=== PATIENT | male | born 1960 | race Caucasian/White ===

== ENCOUNTER → 2022-06-28 | Outpatient (CLI) | payer OTHER ==
[2022-06-27 07:54] VITALS: BP 197/119
[~2022-06-28] VITALS: Ht 172 cm; Wt 75.0 kg
[~2022-06-28] MED LIST: ASPI-999 PO; ATOR40TA PO; CARV3.12 PO; CATHETER FLUSH 10 ML SYR IV PRN; CATHETER FLUSH 10 ML SYR IVP PRN; CEFD300C3 PO; CLOP-31 PO; DOXY100T2 PO; HOLD METFORMIN - RECEIVED CONTRAST 20 ML VIAL IV SCH; IOHEXOL 350 MG/ML 100 ML (OMNIPAQUE 350) VIAL IV ONE; LOSA25TA41 PO; NS 100 ML (IVPB) BAG IV ONE; REGADENOSON 0.4 MG/5 ML SYR (LEXISCAN) IV ONE
[2022-06-28 07:16] LABS: CREATININE SERUM 1.16 MG/DL (0.60-1.30)
--- NOTE | 2022-06-28 13:10 | Diagnostic Imaging Report ---
Indication: Essential hypertension. Post IV contrast-enhanced CT angiogram neck performed with 2-D and 3-D reconstructions I have no priors. There is conventional branching of the aortic arch. Calcified plaque at the left vertebral osteo results in less than 50% stenosis. The right cervical vertebral artery proximally is positioned anterior to the foramen transversarium as an incidental variant. No hemoglobin significant cervical or intracranial vertebral arterial stenosis. The basilar and [employer] segments included in the [id number] patent and unremarkable. There is bulky calcified and partially noncalcified plaque at the left carotid bulb and bifurcation extending into the proximal internal and external carotids resulting in around (70-80%) stenosis calcified and partially noncalcified plaque, at the right carotid bifurcation resulting in about 50% stenosis. Mid to distal cervical internal carotids have a tortuous course but are widely patent. Intracranial ICAs and visualized anterior and middle cerebral arterial segments unremarkable. IMPRESSION: Left greater than right carotid stenoses at the bifurcations and proximal ICAs owing to calcified greater than soft plaque. On the left the stenosis is probably around 70-80% and on the right around 50%. No hemodynamically significant vertebrobasilar stenosis and the visualized intracranial arterial structures unremarkable. Dictated by: Dictated on workstation # [id number]
--- NOTE | 2022-06-29 08:51 | Cardiology Stress Test Report ---
Stress Test Report Date of Procedure/Referring: Date of Procedure: Jun 28, 2022 PCP Admitting Physician Admitting Physician: Attending Physician: Tracee Dumas MD Indications: CAD Baseline Heart Rate: 113 Baseline Blood Pressure: Blood Pressure Systolic: 197 Blood Pressure Diastolic: 119 Baseline Vitals Vital Signs Date Time Temp Pulse Resp B/P (MAP) Pulse Ox O2 Delivery O2 Flow Rate FiO2 06/27/22 07:54 113 197/119 (145) 99 Baseline EKG: Baseline EKG: NSR Summary After explaining the procedure to the patient, he signed a consent and then brought to the stress nuclear laboratory. Patient received 0.4 mg Lexiscan for stress test, ECG, heart rate and blood pressure were monitored continuously. Resting and stress dose of radio tracer were injected, imaging was acquired and reviewed in short axis, horizontal long axis and vertical long axis views. TID: 1.22 SSS: 16 SDS: 4 EF: 23 1. Patient tolerated Lexiscan well 2. Baseline hypertension persisted during test 3. Total infarction of the inferior wall with sophy-infarct ischemia 4. Transient ischemic dilatation 1.2 to 5. Dilated left ventricle with diffuse left ventricular hypokinesia with ejection fraction 23% TRACEE DUMAS MD Jun 29, 2022 08:51
== END ==
LOC: CARD 06:41
PROVIDERS: ATTEND Internal Medicine Cardiovascular Disease
DX: I11.0 Hypertensive heart disease with heart failure (principal); I21.9 Acute myocardial infarction, unspecified; I25.9 Chronic ischemic heart disease, unspecified; I65.23 Occlusion and stenosis of bilateral carotid arteries; I35.1 Nonrheumatic aortic (valve) insufficiency
CPT/HCPCS: 70498; 78452; 82565; 84520; 93017; A9502; C8929; 36415; 93306

== ENCOUNTER 2022-06-29 11:00 | Day surgery (SDC) | payer OTHER ==
[2022-06-29] VITALS (12 sets, daily range): BP systolic 134–207; BP diastolic 75–131
[~2022-06-29] VITALS: Ht 172.7 cm; Wt 74.8 kg
--- NOTE | 2022-06-29 09:15 | Diagnostic Imaging Report ---
INDICATION: Pre-heart catheter evaluation COMPARISON: None FINDINGS: Single frontal view of the chest demonstrates normal heart size and pulmonary vascularity. The lungs are well aerated and clear. No large pleural effusion or pneumothorax is seen. The visualized osseous structures show no acute abnormalities. IMPRESSION: 1. No acute cardiopulmonary process. Dictated by: Dictated on workstation # [id number]
[2022-06-29 09:30] LABS: HEMATOCRIT 46 % (40-54); HEMOGLOBIN 15.9 g/dL (13.3-17.7); MEAN CORPUSCULAR HEMOGLOBIN 27 pg (25-34); MEAN CORPUSCULAR HGB CONC 34 g/dL (32-36); MEAN CORPUSCULAR VOLUME 78 fL (80-99); MEAN PLATELET VOLUME 9.6 fL (9.0-12.2); PLATELET COUNT 325 10^3/uL (130-400); WHITE BLOOD COUNT 10.5 10^3/uL (4.3-11.0)
[2022-06-29 09:31] LABS: BILIRUBIN,URINE NEGATIVE (NEGATIVE); CLARITY,URINE CLEAR; COLOR,URINE YELLOW; GLUCOSE, URINE (UA) 3+ (NEGATIVE); KETONES,URINE NEGATIVE (NEGATIVE); LEUKOCYTE ESTERASE ,URINE NEGATIVE (NEGATIVE); NITRITE,URINE NEGATIVE (NEGATIVE); PH,URINE 5.5 (5-9); PROTEIN,URINE 2+ (NEGATIVE)
[2022-06-29 09:38] LABS: BACTERIA,URINE FEW /HPF; RBC,URINE 0-2 /HPF; WBC,URINE RARE /HPF
[2022-06-29 09:42] LABS: INR 0.9 (0.8-1.4); PROTHROMBIN TIME PATIENT 12.6 SEC (12.2-14.7)
[2022-06-29 09:57] LABS: ALBUMIN 3.8 GM/DL (3.2-4.5); BILIRUBIN,TOTAL 0.6 MG/DL (0.1-1.0); CALCIUM 10.1 MG/DL (8.5-10.1); CREATININE SERUM 1.18 MG/DL (0.60-1.30); POTASSIUM 4.3 MMOL/L (3.6-5.0)
[~2022-06-29 11:00] MED LIST changes: -ATOR40TA PO; -CARV3.12 PO; -CATHETER FLUSH 10 ML SYR IV PRN; -CATHETER FLUSH 10 ML SYR IVP PRN; +HEParin (CATH LAB) 2,000 ML IV ONE; -HOLD METFORMIN - RECEIVED CONTRAST 20 ML VIAL IV SCH; -IOHEXOL 350 MG/ML 100 ML (OMNIPAQUE 350) VIAL IV ONE; +ISOSORBIDE MONONITRATE 30 MG (IMDUR) TAB PO ONE; +LIDOCAINE 1% INJ 20 ML VIAL ONE; -LOSA25TA41 PO; -NS 100 ML (IVPB) BAG IV ONE; +NS IV 1000 ML 1,000 ML IV SCH; +NS IV 1000 ML 1,000 ML ONE; -REGADENOSON 0.4 MG/5 ML SYR (LEXISCAN) IV ONE
--- NOTE | 2022-06-29 14:08 | Cardiac Procedure Note-CS/ASA ---
Pre-Procedure Note Pre-Op Procedure Note Date of Available H&P: Jun 21, 2022 Date H&P Reviewed: Jun 29, 2022 Time H&P Reviewed: 14:08 History & Physical: H&P Reviewed, Patient Examed, No changes noted Pre-Operative Diagnosis: PAD, CAD Conscious Sedation Pre-Proced Time 14:08 ASA Score 3 For ASA 3 and 4: Consider anesthesia and medical clearance. Also, for patients with a history of failed moderate sedation consider anesthesia. Airway Lungs Heart ASA score ASA 1: a normal healthy patient ASA 2: a patient with a mild systemic disease (mid diabetes, controlled hypertension, obesity ASA 3: a patient with a severe systemic disease that limits activity (angina, COPD, prior Myocardial infarction) ASA 4: a patient with an incapacitating disease that is a constant threat to life (CHF, renal failure) ASA 5: a moribund patient not expected to survive 24 hrs. (ruptured aneurysm) ASA 6: a declared brain- patient whose organs are being harvested. For emergent operations, add the letter E after the classification Mallampati Classification Grade 3 Sedation Plan Analgesia, Amnesia, Plan communicated to team members, Discussed options with patient/fam, Discussed risks with patient/fam The patient is an appropriate candidate to undergo the planned procedure, sedation, and anesthesia. The patient immediately re-assessed prior to indication. TRACEE OJEDA MD Jun 29, 2022 14:08
[2022-06-29] MEDS ORDERED: MIDAZOLAM 5 MG/5 ML (VERSED) VIAL ONE (14:16)
[2022-06-29] MEDS ORDERED: fentaNYL INJ 100 MCG/2 ML AMP ONE (14:16)
[2022-06-29] MEDS ORDERED: HEParin 1000 UNIT/ML (10ML VIAL) FOR BOLUS ONE (14:43)
[2022-06-29] MEDS ORDERED: meTOprolol 5 MG/5 ML (LOPRESSOR) VIAL ONE (14:51)
[2022-06-29] MEDS ORDERED: ATOR40TA PO (15:08)
--- NOTE | 2022-06-29 15:09 | Discharge Inst-Post CATH ---
Discharge Inst-CATH/EP Problems Reviewed?: Yes Post Cardiac Cath/EP D/C Inst Follow Up/Plan Appointment with Dr. Jong Montilla with [facility] in [place] Appointment with Dr. Dumas's office in 2 weeks <b>CARDIAC CATH/EP PROCEDURE DISCHARGE INSTRUCTIONS</b> ACTIVITY * Go Home directly and rest. * Limit activity of the leg (or wrist if it was used) for 7 days including aerobics, swimming, jogging, bicycling, etc. * Restrict stair-climbing for 7 days if possible, if not, climb up with your non-cath leg, then bring together on the same step. * Avoid lifting, pushing, pulling or excessive movement of the affected extremity for 7 days. * Customary sexual activity may be resumed after 2 days-use caution not to use a position that strains or causes pain to the affected extremity. * No driving for 24 hours. * NO SMOKING. * Avoid straining for bowel movements for 7 days. * Gentle walking on level ground is allowed. * Returning to work will depend on the type of procedure and the results. Your doctor will discuss this with you. CALL YOUR DOCTOR FOR ANY OF THE FOLLOWING: *If bleeding from the puncture site occurs- Apply gentle pressure to site with clean cloth and call your doctor or EMS. * If a knot or lump forms under the skin, increases in size, or causes pain. * If bruising appears to be worsening or moving further down your leg instead of disappearing. * Temperature above 101 F. CARE OF YOUR GROIN INCISION; * Bruising or purple discoloration of the skin near the puncture site is common. * You may shower only, no bathtub bathing for 5 days. Be careful to avoid slipping as your leg may feel stiff. * If a closure device was used on your femoral artery, please see the attached guide regarding care of the device and your leg. * Leave dressing on FOR 24 hours. CARE OF YOUR WRIST INCISION; * Bruising or purple discoloration of the skin near the puncture site is common. * You may shower. * DO NOT submerge wrist. * Leave dressing on FOR 24 hours. TRACEE DUMAS MD Jun 29, 2022 15:09
--- NOTE | 2022-06-29 15:14 | Cardiac Cath Report ---
Cardiac Cath Report Physician (s)/Configuration Manager (s) Physician TRACEE OJEDA MD Pre-Procedure Diagnosis Pre-Procedure Diagnosis: PAD, CAD Post-Procedure Note Procedure Start Date: Jun 29, 2022 Name of Procedure: Left heart catheterization Aortic arch angiogram Bilateral lower extremities runoff First order Additional imaging Findings/Procedure Note PROCEDURE NOTE: 61 years old gentleman admitted with claudication, had an abnormal BRENDON scheduled for peripheral angiogram with bilateral lower extremities runoff. He had abnormal stress test and I decided to proceed with coronary angiogram in addition to the peripheral angiogram. After explaining the procedure to the patient, all pros and cons were explained, all questions were answered. The patient signed the consent and then he was placed in the cardiac catheterization laboratory. Groin was prepped in SL fashion local anesthesia was used. Sheath placed in the left femoral artery. Mateus' right and left catheter were used to access the coronary system. Pigtail catheter was advanced to the aortic arch and aortic arch angiogram was done. Using a rim catheter I crossed over to the right common iliac artery and did runoff to the right lower extremity, I tried to advance a Storq wire without success. Catheter was removed then I did runoff to the left leg with using the sheath then did DSA imaging at the level of the trifurcation. At the end of the procedure the sheath was removed. Perclose was deployed on the left leg with no complication. FINDINGS: Hemodynamics LV 124/10, end-diastolic pressure of 10 Aorta 136/62 mean of 88 ANATOMY: Left Main is calcified. Nonobstructive disease Left Anterior Descending has 80% mid LAD stenosis, 80% first diagonal artery stenosis. Left Circumflex has severe stenosis distally. Ramus intermedius has severe stenosis proximally Right Coronary Artery dominant artery with total occlusion at the midportion reconstructed by collaterals LV Gram was not done. Ejection fraction known to be 25 to 30% by echo and 23% by gated images Aorta evaluation done with aortic arch angiogram showing heavy calcification. No dissection or aneurysm, normal origin of the brachiocephalic artery left carotid and left subclavian artery Right lower extremity runoff, heavily calcified arteries down to the trifurcation, Right common iliac and common femoral artery are patent with mild disease Right SFA, popliteal arteries are patent with mild to moderate disease nonobstructive disease Trifurcation is normal with no obstructive disease Left lower extremity: Calcified artery with 40% stenosis at the mid SFA. Nonobstructive disease down to the trifurcation Left anterior tibial artery, posterior tibial artery and peroneal arteries are normal with slow flow due to small vessel disease CONCLUSION: 1. Severe multivessel coronary artery disease with occlusion of the right coronary artery that is dominant artery receiving collaterals from the left system 2. Dilated left ventricle with ejection fraction 25% by echocardiogram 3. Heavily calcified aorta with no dissection or aneurysm 4. Calcified arteries in the lower extremity with no obstructive disease DISCUSSION AND RECOMMENDATION: Patient will be referred for evaluation for bypass surgery. Continue to maximize medical therapy Anesthesia Type: Conscious Sedation Estimated blood loss (mL): 20 ml Total Radiation Dose: 449 mGy Post-Procedure Diagnosis Post-operative diagnosis: Coronary artery disease Congestive heart failure, chronic compensated left ventricular systolic dysfunction, ischemic cardiomyopathy Hypertension Hyperlipidemia Peripheral arterial disease TRACEE OJEDA MD Jun 29, 2022 15:14
[2022-06-29] MEDS ORDERED: LOSA25TA41 PO (15:15)
[2022-06-29] MEDS ORDERED: CARV3.12 PO (15:15)
[2022-06-29] MEDS ORDERED: PATIENT MAY USE OWN MEDS, ALL PO SCH (15:15)
[2022-06-29] MEDS ORDERED: NS IV 1000 ML 1,000 ML IV SCH (15:15)
[2022-06-30] MEDS ORDERED: ASPIRIN E.C. 81 MG (ECOTRIN) TAB PO SCH (09:00)
== END 2022-06-29 18:38 | disposition home or self-care (01) ==
LOC: CATH 11:00 → CSD 15:29 → CATH 18:38
PROVIDERS: ATTEND Internal Medicine Cardiovascular Disease
DX: I25.10 Atherosclerotic heart disease of native coronary artery without angina pectoris (principal); I25.82 Chronic total occlusion of coronary artery; I70.203 Unspecified atherosclerosis of native arteries of extremities, bilateral legs; I11.0 Hypertensive heart disease with heart failure; I25.5 Ischemic cardiomyopathy; E78.5 Hyperlipidemia, unspecified; I65.23 Occlusion and stenosis of bilateral carotid arteries; I50.22 Chronic systolic (congestive) heart failure; Z87.891 Personal history of nicotine dependence
CPT/HCPCS: 36221; 36245; 36248; 71045; 75716; 80053; 80061; 81000; 85027; 85610; 85730; 87081; 93005; 93458; C1760; C1769; C1887 ×2; C1894; 36415

== ENCOUNTER → 2022-07-25 | Outpatient (CLI) | payer OTHER ==
[~2022-07-25] MED LIST changes: +ATOR40TA PO; +CARV3.12 PO; +DOBUTamine DRIP 250 ML IV ONE; -HEParin (CATH LAB) 2,000 ML IV ONE; -ISOSORBIDE MONONITRATE 30 MG (IMDUR) TAB PO ONE; -LIDOCAINE 1% INJ 20 ML VIAL ONE; +LOSA25TA41 PO; -NS IV 1000 ML 1,000 ML IV SCH; -NS IV 1000 ML 1,000 ML ONE
[2022-07-25 10:12] VITALS: BP 204/116
== END ==
LOC: CARD 11:00
PROVIDERS: ATTEND Physician Assistant
DX: I51.7 Cardiomegaly (principal)

== ENCOUNTER → 2022-07-25 | Outpatient (CLI) | payer OTHER ==
[~2022-07-25] MED LIST changes: -DOBUTamine DRIP 250 ML IV ONE
== END ==
LOC: LAB 09:44
DX: E11.52 Type 2 diabetes mellitus with diabetic peripheral angiopathy with gangrene (principal)
CPT/HCPCS: 36415; 83036

== ENCOUNTER 2022-08-30 16:49 | Emergency (ER) | payer OTHER ==
[~2022-08-30] VITALS: Ht 173 cm; Wt 73.9 kg
--- NOTE | 2022-08-30 17:09 | ED General ---
General Chief Complaint: Post OP Complications/Pain Stated Complaint: POST OP CATHETER BLEEDING Nursing Triage Note: ARRIVES TO ROOM WITH C/O POST HEART CATH BLEEDING FROM INSERTION AREA. NOTED BLEEDING FROM LEFT GROIN AREA. Source of Information: Patient Exam Limitations: No Limitations History of Present Illness Date Seen by Provider: Aug 30, 2022 Time Seen by Provider: 16:58 Initial Comments This is a well-appearing 61-year-old male who presented to the ER via POV for complaints of bleeding from his cardiac catheter site in his left groin. He had cardiac catheterization by Dr. White at [facility] this morning. Discharged home with no complications. After taking a nap he woke to find blood saturated on his dressing. Applied direct pressure but site continued to ooze. Has not saturated through dressing. Presented to ER for evaluation. Denies pain, numbness, tingling, or loss of sensation. Allergies and Home Medications Allergies Coded Allergies: No Known Drug Allergies (Unverified , 08/30/22) Patient Home Medication List Home Medication List Reviewed: Yes Aspirin (Aspirin) 81 Mg Tab.chew, 81 MG PO DAILY, (Reported) Entered as Reported by: TRISTA ASHLEY on 06/29/22 0936 Atorvastatin Calcium (Lipitor) 40 Mg Tablet, 40 MG PO DAILY Prescribed by: TRACEE OJEDA on 06/29/22 1508 Carvedilol (Coreg) 3.125 Mg Tablet, 3.125 MG PO BID Prescribed by: TRACEE OJEDA on 06/29/22 151 Cefdinir (Cefdinir) 300 Mg Capsule, 300 MG PO BID, (Reported) Entered as Reported by: TRISTA ASHLEY on 06/29/22 0936 Clopidogrel Bisulfate (Plavix) 75 Mg Tablet, 75 MG PO DAILY, (Reported) Entered as Reported by: TRISTA ASHLEY on 06/29/22 0934 Doxycycline Hyclate (Doxycycline Hyclate) 100 Mg Tablet, 100 MG PO BID, (Reported) Entered as Reported by: TRISTA ASHLEY on 06/29/22 0936 Losartan Potassium (Losartan Potassium) 25 Mg Tablet, 25 MG PO DAILY Prescribed by: TRACEE OJEDA on 06/29/22 1515 Review of Systems Review of Systems Constitutional: see HPI Past Mbfuxvp-Sjlwne-Bmmizc Hx Past Medical History Orthopedic Currently Using CPAP: No Currently Using BIPAP: No Hypertension Physical Exam Vital Signs Vital Signs - First Documented 08/30/22 16:56 Temp 36.6 Pulse 95 Resp 18 B/P (MAP) 200/108 (138) Pulse Ox 100 O2 Delivery Room Air Capillary Refill : Height, Weight, BMI Height: '" Weight: lbs. oz. kg; 24.00 BMI Method: General Appearance: No Apparent Distress, WD/WN Eyes: Bilateral Eye Normal Inspection, Bilateral Eye PERRL, Bilateral Eye EOMI HEENT: PERRL/EOMI, TMs Normal, Pharynx Normal Neck: Full Range of Motion, Normal Inspection, Supple Respiratory: Lungs Clear, Normal Breath Sounds, No Accessory Muscle Use, No Respiratory Distress Cardiovascular: Regular Rate, Rhythm, No Edema, Systolic Murmur Gastrointestinal: Normal Bowel Sounds, Non Tender, Soft Extremity: Normal Capillary Refill, Normal Inspection, Normal Range of Motion, Other (ozing blood from left groin incision, no pulsations or hematomas appreciated. ) Neurologic/Psychiatric: Alert, Oriented x3, No Motor/Sensory Deficits, Normal Mood/Affect Skin: Normal Color, Warm/Dry Progress/Results/Core Measures Suspected Sepsis SIRS Temperature: Pulse: 95 Respiratory Rate: 18 Blood Pressure 200 /108 Mean: 138 Results/Orders My Orders Orders - SHAMEKA MANJARREZ APRN Lidocaine/Epi 2% 1:100,000 (Xylocaine/Ep (08/30/22 17:15) Lidocaine/Epi 1% 1:100,000 (Xylocaine /E (08/30/22 17:27) Medications Given in ED Current Medications Medications Dose Ordered Sig/Gunnar Route Start Time Stop Time Status Last Admin Dose Admin Lidocaine/ Epinephrine 20 ml STK-MED ONCE .ROUTE 08/30/22 17:27 08/30/22 17:30 DC 08/30/22 17:31 20 ML Vital Signs/I&O 08/30/22 08/30/22 16:56 18:05 Temp 36.6 36.6 Pulse 95 98 Resp 18 18 B/P (MAP) 200/108 (138) 158/90 Pulse Ox 100 100 O2 Delivery Room Air Room Air Capillary Refill : Blood Pressure Mean: 138 Progress Note : Progress Note Patient examined no acute distress. He is hypertensive on arrival which he states is his norm. No evidence of hemorrhage, site is just oozing small amount of blood. Applied direct pressure and 5 pound sandbag and contact made with Dr. White pre parole counseling aide with [facility]. Requested lidocaine with epinephrine 1% 10 to 20 mL to be injected into track careful to avoid arterial puncture to help stop bleeding. Informed of patient's elevated blood pressure, states that he does have labile blood pressure and is more accurate with a manual. Patient has no complaints of chest pain, shortness of breath, headache, nausea, vomiting. No ACS symptoms. Was able to inject 10 mL of lidocaine with epi 1% via 23g needle careful to avoid aterial penetration with immediate resolution of bleeding. He was monitored for another 15 minutes wtih no active bleeding. Discharge BP 158/90. Departure Impression Primary Impression: Post-op bleeding Disposition: HOME, SELF-CARE Condition: Improved Departure-Patient Inst. Decision time for Depature: 17:55 Referrals: DONOVAN SIDDIQUI APRN (PCP/Family) Primary Care Physician Patient Instructions: Bleeding After Surgery Add. Discharge Instructions: Plan: 1. Follow directions as outlined from your discharge packet provided by [facility]. 2. If you have any recurrence of bleeding apply direct pressure and if you are unable to stop bleeding please return to the emergency department. 3. Return for any new, concerning, worsening symptoms. Copy Copies To 1: [facility]/SHAMEKA PENNINGTON APRN Aug 30, 2022 17:09
[2022-08-30] MEDS ORDERED: LIDOCAINE/EPI 2% 1:100,00 (XYLOCAINE) 20 ML VIAL INJ ONE (17:15)
[2022-08-30] MEDS ORDERED: LIDOCAINE/EPI 1%-1:100,000 (XYLOCAINE) 20ML ONE (17:27)
[2022-08-30 18:05] VITALS: BP 158/90
== END 2022-08-30 18:05 | disposition home or self-care (01) ==
LOC: EDUNIT# 16:49 → ER 16:50
DX: I97.610 Postprocedural hemorrhage of a circulatory system organ or structure following a cardiac catheterization (principal); I10 Essential (primary) hypertension
CPT/HCPCS: 99284

== ENCOUNTER 2022-10-04 10:52 | Emergency (ER) | payer OTHER ==
[2022-10-04] VITALS (7 sets, daily range): BP systolic 86–111; BP diastolic 43–78
[2022-10-04] MEDS ORDERED: ATROPINE INJECTION 1 MG/10 ML SYR (ABBOTT) INJ ONE (10:55)
[2022-10-04] MEDS ORDERED: CALCIUM CHLORIDE 10% 1000 MG/10 ML VIAL IV ONE (10:55)
[2022-10-04] MEDS ORDERED: NS IV 500 ML 500 ML IV STA (11:01)
--- NOTE | 2022-10-04 11:06 | ED General ---
General Chief Complaint: Neurological Problems Stated Complaint: POST-SEIZURE Nursing Triage Note: PT BROUGHT IN BY [facility] FROM HOME WITH COMPLAINT OF NOT FEELING WELL, SEIZURE ACTIVITY, VOMITING. BS WAS 317 FOR EMS. RECENTLY HAD TOES AMPUTATED. GIVEN 4 MG ZOFRAN BY EMS. Source of Information: Patient, EMS Exam Limitations: No Limitations History of Present Illness Date Seen by Provider: October 04, 2022 Time Seen by Provider: 10:52 Initial Comments 62-year-old male who was recently diagnosed with type 2 diabetes mellitus using metformin and Ozempic presents to the emergency department today for reported possible seizure activity at home. Family reported generalized shaking movements x2 this morning. He is also had a couple episodes of emesis. His blood sugar was 317 for EMS in route. September 20 he had the toes on his right foot amputated secondary to infection related to diabetes complications. He states he overall feels unwell but has no specific medical complaints at this time. He denies any recent fevers or chills chest pain cough abdominal pain or changes in bowel or bladder habits. He does not have a history of seizure activity. Record review shows heart cath 06/29/22 and had severe multi-vessel disease, rec bypass. All other systems reviewed and negative except documented per HPI. Voice recognition software was used to help create this chart Allergies and Home Medications Allergies Coded Allergies: No Known Drug Allergies (Unverified , 08/30/22) Patient Home Medication List Home Medication List Reviewed: Yes Aspirin (Aspirin) 81 Mg Tab.chew, 81 MG PO DAILY, (Reported) Entered as Reported by: TRISTA ASHLEY on 06/29/22 0936 Atorvastatin Calcium (Lipitor) 40 Mg Tablet, 40 MG PO DAILY Prescribed by: TRACEE OJEDA on 06/29/22 1508 Carvedilol (Coreg) 3.125 Mg Tablet, 3.125 MG PO BID Prescribed by: TRACEE OJEDA on 06/29/22 1515 Cefdinir (Cefdinir) 300 Mg Capsule, 300 MG PO BID, (Reported) Entered as Reported by: TRISTA ASHLEY on 06/29/22 0936 Clopidogrel Bisulfate (Plavix) 75 Mg Tablet, 75 MG PO DAILY, (Reported) Entered as Reported by: TRISTA ASHLEY on 06/29/22 0934 Doxycycline Hyclate (Doxycycline Hyclate) 100 Mg Tablet, 100 MG PO BID, (Reported) Entered as Reported by: TRISTA ASHLEY on 06/29/22 0936 Losartan Potassium (Losartan Potassium) 25 Mg Tablet, 25 MG PO DAILY Prescribed by: TRACEE OJEDA on 06/29/22 1515 Review of Systems Review of Systems Constitutional: see HPI Past Pxcqplb-Uopymw-Gancpd Hx Patient Social History Tobacco Use?: No Smoking Status: Former Smoker Use of E-Cig and/or Vaping dev: No Substance use?: No Alcohol Use?: No Pt feels they are or have been: No Immunizations Up To Date First/Initial COVID19 Vaccinat: 2 SHOTS Second COVID19 Vaccination Karlo: 2 SHOTS Third COVID19 Vaccination Date: 2 SHOTS Past Medical History Surgery/Hospitalization HX: HEART CATH, KNEE SCOPE, WRIST SURG. HTN, DIABETIC ORAL MED. Orthopedic Currently Using CPAP: No Currently Using BIPAP: No Hypertension Family Medical History Reviewed Nursing Family Hx No Pertinent Family Hx Physical Exam Vital Signs Vital Signs - First Documented 10/04/22 10/04/22 10:53 12:57 Temp 34.4 Pulse 77 Resp 14 B/P (MAP) 99/70 (80) Pulse Ox 100 O2 Delivery Room Air O2 Flow Rate 10.00 Capillary Refill : Less Than 3 Seconds Height, Weight, BMI Height: '" Weight: lbs. oz. kg; 24.00 BMI Method: General Appearance: No Apparent Distress, WD/WN HEENT: PERRL/EOMI, Normal ENT Inspection Neck: Full Range of Motion, Normal Inspection, Non Tender, Supple Respiratory: Chest Non Tender, Lungs Clear, No Accessory Muscle Use, No Respiratory Distress, Other (Mild expiratory wheezing bilaterally) Cardiovascular: Regular Rate, Rhythm, No Edema, No Murmur, Normal Peripheral Pulses, Other (Hypotension, 90s systolic) Gastrointestinal: Normal Bowel Sounds, No Organomegaly, Non Tender, Soft Extremity: Normal Capillary Refill, Other (Dressing removed from the right foot. No evidence for infection. Sutures in place healing well.) Neurologic/Psychiatric: Alert, Oriented x3, No Motor/Sensory Deficits, Normal Mood/Affect, redye hand II-XII Norm as Tested Skin: Normal Color, Warm/Dry Focused Exam Lactate Level 10/04/22 10:55: Lactic Acid Level 4.58*H 10/04/22 12:48: Lactic Acid Level Laboratory Tests Test 10/04/22 10:55 10/04/22 12:48 Lactic Acid Level 4.58 MMOL/L (0.50-2.00) *H Procedures/Interventions Lumen: triple Central Line Procedure: betadine prep Position: femoral (R) Anesthesia: Lidocaine Volume Anesthetic (ccs): 10 Complications: none Post Position: sutured Progress/Results/Core Measures Suspected Sepsis SIRS Temperature: Pulse: 77 Respiratory Rate: 14 Laboratory Tests 10/04/22 10:55: White Blood Count 16.8H Blood Pressure 99 /70 Mean: 80 10/04/22 10:55: Lactic Acid Level 4.58*H 10/04/22 12:48: Laboratory Tests 10/04/22 10:55: Creatinine 1.70H, Platelet Count 292, Total Bilirubin 0.4 Results/Orders Lab Results Laboratory Tests Test 10/04/22 10:55 10/04/22 10:57 10/04/22 11:18 10/04/22 12:42 Range/Units White Blood Count 16.8 H 4.3-11.0 10^3/uL Red Blood Count 2.24 L 4.30-5.52 10^6/uL Hemoglobin 6.3 *L 13.3-17.7 g/dL Hematocrit 18 *L 40-54 % Mean Corpuscular Volume 81 80-99 fL Mean Corpuscular Hemoglobin 28 25-34 pg Mean Corpuscular Hemoglobin Concent 35 32-36 g/dL Red Cell Distribution Width 13.8 10.0-14.5 % Platelet Count 292 130-400 10^3/uL Mean Platelet Volume 9.4 9.0-12.2 fL Immature Granulocyte % (Auto) 2 % Neutrophils (%) (Auto) 88 H 42-75 % Lymphocytes (%) (Auto) 5 L 12-44 % Monocytes (%) (Auto) 5 0-12 % Eosinophils (%) (Auto) 0 0-10 % Basophils (%) (Auto) 0 0-10 % Neutrophils # (Auto) 14.8 H 1.8-7.8 10^3/uL Lymphocytes # (Auto) 0.9 L 1.0-4.0 10^3/uL Monocytes # (Auto) 0.8 0.0-1.0 10^3/uL Eosinophils # (Auto) 0.0 0.0-0.3 10^3/uL Basophils # (Auto) 0.0 0.0-0.1 10^3/uL Immature Granulocyte # (Auto) 0.3 H 0.0-0.1 10^3/uL Neutrophils % (Manual) 87 % Lymphocytes % (Manual) 6 % Monocytes % (Manual) 6 % Myelocytes % 1 % Polychromasia SLIGHT Anisocytosis SLIGHT Microcytosis SLIGHT Sodium Level 130 L 135-145 MMOL/L Potassium Level 6.7 #*H 3.6-5.0 MMOL/L Chloride Level 100 98-107 MMOL/L Carbon Dioxide Level 16 L 21-32 MMOL/L Anion Gap 14 5-14 MMOL/L Blood Urea Nitrogen 46 H 7-18 MG/DL Creatinine 1.70 H 0.60-1.30 MG/DL Estimat Glomerular Filtration Rate 45 BUN/Creatinine Ratio 27 Glucose Level 299 H 70-105 MG/DL Lactic Acid Level 4.58 *H 0.50-2.00 MMOL/L Calcium Level 8.8 8.5-10.1 MG/DL Corrected Calcium 9.5 8.5-10.1 MG/DL Total Bilirubin 0.4 0.1-1.0 MG/DL Aspartate Amino Transf (AST/SGOT) 319 H 5-34 U/L Alanine Aminotransferase (ALT/SGPT) 440 H 0-55 U/L Alkaline Phosphatase 112 40-136 U/L Troponin I 4.714 *H <0.028 NG/ML Total Protein 5.8 L 6.4-8.2 GM/DL Albumin 3.1 L 3.2-4.5 GM/DL Beta-Hydroxybutyrate (Chem panel) 0.20 0.00-0.27 MMOL/L Glucometer 243 H 70-110 MG/DL SARS-CoV-2 RNA (RT-PCR) Not Detected Not Detecte Urine Color YELLOW Urine Clarity CLEAR Urine pH 5.5 5-9 Urine Specific [place] 1.015 L 1.016-1.022 Urine Protein 1+ H NEGATIVE Urine Glucose (UA) NEGATIVE NEGATIVE Urine Ketones NEGATIVE NEGATIVE Urine Nitrite NEGATIVE NEGATIVE Urine Bilirubin NEGATIVE NEGATIVE Urine Urobilinogen 0.2 < = 1.0 MG/DL Urine Leukocyte Esterase NEGATIVE NEGATIVE Urine RBC (Auto) NEGATIVE NEGATIVE Urine RBC 0-2 /HPF Urine WBC 0-2 /HPF Urine Crystals NONE /LPF Urine Bacteria NEGATIVE /HPF Urine Casts PRESENT /LPF Urine Hyaline Casts RARE /LPF Urine Mucus NEGATIVE /LPF Urine Culture Indicated NO Test 10/04/22 12:48 10/04/22 13:02 Range/Units Glucometer 233 H 70-110 MG/DL My Orders Orders - TC SWARTZ DO Comprehensive Metabolic Panel (10/04/22 11:01) Beta Hydroxybutyrate (10/04/22 11:01) Ua Culture If Indicated (10/04/22 11:01) Ct Head Wo (10/04/22 11:01) Cbc With Automated Diff (10/04/22 11:01) Blood Culture (10/04/22 11:01) Chest 1 View, Ap/Pa Only (10/04/22 11:01) Ed Iv/Invasive Line Start (10/04/22 11:01) Ekg Tracing (10/04/22 11:01) Vital Signs Adult Sepsis Patie Q15M (10/04/22 11:01) Lactic Acid Analyzer (10/04/22 11:01) Ns Iv 500 Ml (Sodium Chloride 0.9%) (10/04/22 11:01) Covid 19 Inhouse Test (10/04/22 11:06) Troponin I Ana (10/04/22 11:12) Manual Differential (10/04/22 10:55) Type And Screen (10/04/22 11:29) Calc Gluc 1 Gm/100 Ml Ivpb (Calcium Gluc (10/04/22 11:45) Insulin (Regular) Human (Novolin R (Per (10/04/22 11:45) Sodium Bicarbonate 8.4% Syr (Sodium Bica (10/04/22 11:45) Piperacillin Sodium/Tazobactam (Zosyn Vi (10/04/22 11:45) Vancomycin Injection (Vancomycin Injecti (10/04/22 11:45) Consent-Obtain Consent For (10/04/22 11:35) Monitor S/S Transfusion Reacti (10/04/22 11:35) Ns Iv 500 Ml (Sodium Chloride 0.9%) (10/04/22 11:45) Red Cells Leukocytes Reduced (10/04/22 11:35) Occult Blood Stool (10/04/22 11:38) Fecal Occult Bedside (10/04/22 12:17) Levetiracetam 1000 Mg/Ns 100ml (Keppra I (10/04/22 21:00) Ondansetron Injection (Zofran Injectio (10/04/22 12:44) Lorazepam Injection (Ativan Injection) (10/04/22 12:44) Levetiracetam 1000 Mg/Ns 100ml (Keppra I (10/04/22 12:47) Accucheck Stat ONCE (10/04/22 13:09) Accucheck Stat ONCE (10/04/22 13:09) Medications Given in ED Current Medications Medications Dose Ordered Sig/Gunnar Route Start Time Stop Time Status Last Admin Dose Admin Calcium Gluconate/ Sodium Chloride 100 ml @ 120 mls/hr ONCE ONCE IV 10/04/22 11:45 10/04/22 12:34 DC 10/04/22 11:51 120 MLS/HR Insulin Human Regular 10 unit ONCE ONCE IV 10/04/22 11:45 10/04/22 11:46 DC 10/04/22 11:51 10 UNIT Piperacillin Sod/ Tazobactam Sod 4.5 gm/Sodium Chloride 100 ml @ 200 mls/hr ONCE ONCE IV 10/04/22 11:45 10/04/22 12:14 DC 10/04/22 12:47 200 MLS/HR Sodium Bicarbonate 50 meq ONCE ONCE IV 10/04/22 11:45 10/04/22 11:46 DC 10/04/22 11:51 50 MEQ Vital Signs/I&O 10/04/22 10/04/22 10/04/22 10:53 12:57 13:05 Temp 34.4 35.6 35.6 Pulse 77 64 53 Resp 14 14 13 B/P (MAP) 99/70 (80) 106/60 88/43 Pulse Ox 100 100 100 O2 Delivery Room Air OxyMask OxyMask O2 Flow Rate 10.00 10.00 Capillary Refill : Less Than 3 Seconds Blood Pressure Mean: 80 ECG Comment Sinus rhythm with first-degree AV block, AK interval 317. Normal axis. There are T wave inversions in 1 aVL V5 and V6. When compared to June 2022 comparison the T wave inversions in V5 and V6 do appear new. There is [address] elevation in lead III. No STEMI. No ectopy. Critical Care Note Critical Care Total Time (minutes) 75 Departure Communication (Admissions) Patient is initially in the mid 90s. Labs come back and he has severe anemia, hemoglobin is 6.3. Hypotension likely secondary to anemia. I have ordered 2 units of PRBCs. He did receive 1 L of IV fluids prior to this. He does have ANDRES which I think is likely related to his anemia, poor perfusion. He also has an elevated troponin with some EKG changes which again is likely secondary to anemia and type II. He has significant hyperkalemia with a prolonged AK interval. Have ordered calcium insulin and bicarbonate. 1155: Pt had a witnessed seizure while on the phone with ICU doctor at [facility]. He was significantly bradycardic during that time, in the low 30's. This responded rapidly to calcium chloride administration and the patient became alert once his heart rate became normal. I think this is likely secondary to hyperkalemia with known severe multivessel disease and type II acute coronary syndrome. He is now alert oriented his blood pressures are stable. I placed a central line in case the need would arise for pressors or further calcium chloride administration. I am concerned there may be a septic component given his recent foot infection and amputation. I went had and ordered Zosyn, vancomycin. He has a significant leukocytosis and lactic acidosis. Does have some hyponatremia as well, possibly from dehydration and overall poor nutritional intake given his recent illnesses. 1210: I spoke to the ICU Dr. Nahomi De La Rosa who accepts the patient in transfer. We are awaiting bed assignment 1245: Patient had another episode of bradycardia followed by seizure activity. I wonder if he is not perfusing SA node well leading to dysrhythmia and seizures. I ordered IV keppra to help lower seizure threshold, however i believe these are mostly cardiogenic. 1316: Room number assigned, Rm [id number] at [facility]. Will work on transport. Impression Primary Impression: Anemia Qualified Codes: D64.9 - Anemia, unspecified Additional Impressions: Hyperkalemia ANDRES (acute kidney injury) Elevated troponin Hyponatremia Disposition: SHT-TRM HOSP Condition: Stable Departure-Patient Inst. Referrals: DONOVAN SIDDIQUI APRN (PCP/Family) Primary Care Physician TC SWARTZ DO October 04, 2022 11:06
[2022-10-04 11:11] LABS: BASOPHILS % (AUTO) 0 % (0-10); EOSINOPHILS % (AUTO) 0 % (0-10); LYMPHOCYTES # (AUTO) 0.9 10^3/uL (1.0-4.0); LYMPHOCYTES % (AUTO) 5 % (12-44); MEAN CORPUSCULAR HEMOGLOBIN 28 pg (25-34); MEAN CORPUSCULAR HGB CONC 35 g/dL (32-36); MEAN CORPUSCULAR VOLUME 81 fL (80-99); MEAN PLATELET VOLUME 9.4 fL (9.0-12.2); MONOCYTES # (AUTO) 0.8 10^3/uL (0.0-1.0); MONOCYTES % (AUTO) 5 % (0-12); NEUTROPHILS # (AUTO) 14.8 10^3/uL (1.8-7.8); NEUTROPHILS % (AUTO) 88 % (42-75); PLATELET COUNT 292 10^3/uL (130-400); WHITE BLOOD COUNT 16.8 10^3/uL (4.3-11.0)
[2022-10-04 11:18] LABS: HEMATOCRIT 18 % (40-54); HEMOGLOBIN 6.3 g/dL (13.3-17.7)
[2022-10-04 11:19] LABS: ALBUMIN 3.1 GM/DL (3.2-4.5)
[2022-10-04 11:20] LABS: CALCIUM 8.8 MG/DL (8.5-10.1)
[2022-10-04 11:21] LABS: TOTAL PROTEIN 5.8 GM/DL (6.4-8.2)
[2022-10-04 11:23] LABS: BILIRUBIN,TOTAL 0.4 MG/DL (0.1-1.0)
[2022-10-04 11:25] LABS: CREATININE SERUM 1.7 MG/DL (0.60-1.30)
[2022-10-04 11:32] LABS: POTASSIUM 6.7 MMOL/L (3.6-5.0)
[2022-10-04 11:33] LABS: ANISOCYTOSIS SLIGHT; LYMPHOCYTES % (MANUAL) 6 %; MICROCYTOSIS SLIGHT; MONOCYTES % (MANUAL) 6 %; MYELOCYTES % 1 %; NEUTROPHILS % (MANUAL) 87 %; POLYCHROMASIA SLIGHT
--- NOTE | 2022-10-04 11:38 | Diagnostic Imaging Report ---
CHEST 1 VIEW, AP/PA ONLY Indication: Hypotension Comparison: 06/29/2022 Findings: No focal airspace disease in the visualized lungs. No pleural effusion or pneumothorax. Normal cardiomediastinal silhouette. Impression: 1. No acute cardiopulmonary process by portable radiography. Dictated by: Dictated on workstation # [id number]
[2022-10-04] MEDS ORDERED: CALC GLUC 1 GM/100 ML IVPB 100 ML IV ONE (11:45)
[2022-10-04] MEDS ORDERED: SODIUM BICARB 8.4% 50 MEQ/50 ML (ABBOTT) SYR IV ONE (11:45)
[2022-10-04] MEDS ORDERED: VANCOMYCIN INJECTION 1,000 MG in NS (IVPB) 250 ML IV ONE (11:45)
[2022-10-04] MEDS ORDERED: inSUlin (REGULAR) HUMAN 1 UNIT/0.01 ML (CHARGE PER UNIT) IV ONE (11:45)
[2022-10-04] MEDS ORDERED: PIPERACILLIN SODIUM/TAZOBACTAM 4.5 GM in NS (IVPB) 100 ML IV ONE (11:45)
[2022-10-04] MEDS ORDERED: NS IV 500 ML 500 ML IV SCH (11:45)
--- NOTE | 2022-10-04 11:53 | Diagnostic Imaging Report ---
CLINICAL INDICATION: Patient with complaints of not feeling well. Seizure activity. Patient vomiting. EXAM: Axial CT scan of the brain without IV contrast with coronal and sagittal reformatted images. Auto Exposure Controls were utilized during the CT exam to meet ALARA standards for radiation dose reduction. COMPARISON: None FINDINGS: There is no evidence of acute cerebral infarct, intracranial hemorrhage, or gross mass effect. There is a small area of low density involving the basal ganglia region, which may be related to prominent perivascular spaces versus chronic infarcts. The brain parenchymal volume appears appropriate for patient's age. There is normal wood-white matter distinction. There is no significant midline shift or herniation. There is no evidence of hydrocephalus. The basal cisterns are unremarkable. There is a chronic slight flattened configuration involving the posterior aspect of the head. Otherwise, the skull, extracranial soft tissue, and orbits are unremarkable. The paranasal sinuses are unremarkable. Temporal bones show no significant abnormality. IMPRESSION: 1: There is no evidence of acute intracranial process. 2: There is a small area of low density involving the left basal ganglia region, which may represent chronic small vessel ischemic disease or prominent perivascular spaces. Dictated by: Dictated on workstation # [id number]
[2022-10-04] MEDS ORDERED: ONDANSETRON 4 MG/2 ML (SDV) Z0FRAN ONE (12:44)
[2022-10-04] MEDS ORDERED: LORazepam INJ 2 MG/ML (ATIVAN) VIAL ONE (12:44)
[2022-10-04] MEDS ORDERED: levETIRAcetam 1000 mg/NS 100ml 100 ML IV ONE (12:47)
[2022-10-04 12:50] LABS: BILIRUBIN,URINE NEGATIVE (NEGATIVE); CLARITY,URINE CLEAR; COLOR,URINE YELLOW; GLUCOSE, URINE (UA) NEGATIVE (NEGATIVE); KETONES,URINE NEGATIVE (NEGATIVE); LEUKOCYTE ESTERASE ,URINE NEGATIVE (NEGATIVE); NITRITE,URINE NEGATIVE (NEGATIVE); PH,URINE 5.5 (5-9); PROTEIN,URINE 1+ (NEGATIVE)
[2022-10-04 13:00] LABS: BACTERIA,URINE NEGATIVE /HPF; HYALINE CASTS, URINE RARE /LPF; RBC,URINE 0-2 /HPF; WBC,URINE 0-2 /HPF
--- NOTE | 2022-10-04 13:09 | Consultation-Cardiology ---
HPI-Cardiology Cardiology Consultation Date of Consultation 10/04/22 Date of Admission Time Seen by Provider: 13:03 Indication: Syncope HPI 62-year-old gentleman known to have peripheral arterial disease and coronary artery disease, awaiting bypass surgery. Patient became unresponsive had seizure-like activity and he was brought to the emergency room for evaluation. On my evaluation he became bradycardic, had another transient episode of unresponsiveness. No reported chest pain. Was noted to have severe anemia, severe hypokalemia. Acute renal failure and lactic acidosis. Home Medications & Allergies Allergies: Coded Allergies: No Known Drug Allergies (Unverified , 08/30/22) Home Medication List Reviewed: Yes CXN-Cuemar-Bcmdyr Hx Patient Social History Marital Status: single Employed/Student: unemployed Smoking Status: Former Smoker Have you traveled recently?: No Alcohol Use?: No Past Medical History Discussed below Family Medical History Significant Family History: No Pertinent Family Hx Review of Systems-General Review of Systems Constitutional: see HPI, other (Unable to provide review of system) Reviewed Test Results Reviewed Test Results Lab Laboratory Tests Test 10/04/22 10:55 10/04/22 10:57 10/04/22 11:18 10/04/22 12:42 Range/Units White Blood Count 16.8 H 4.3-11.0 10^3/uL Red Blood Count 2.24 L 4.30-5.52 10^6/uL Hemoglobin 6.3 *L 13.3-17.7 g/dL Hematocrit 18 *L 40-54 % Mean Corpuscular Volume 81 80-99 fL Mean Corpuscular Hemoglobin 28 25-34 pg Mean Corpuscular Hemoglobin Concent 35 32-36 g/dL Red Cell Distribution Width 13.8 10.0-14.5 % Platelet Count 292 130-400 10^3/uL Mean Platelet Volume 9.4 9.0-12.2 fL Immature Granulocyte % (Auto) 2 % Neutrophils (%) (Auto) 88 H 42-75 % Lymphocytes (%) (Auto) 5 L 12-44 % Monocytes (%) (Auto) 5 0-12 % Eosinophils (%) (Auto) 0 0-10 % Basophils (%) (Auto) 0 0-10 % Neutrophils # (Auto) 14.8 H 1.8-7.8 10^3/uL Lymphocytes # (Auto) 0.9 L 1.0-4.0 10^3/uL Monocytes # (Auto) 0.8 0.0-1.0 10^3/uL Eosinophils # (Auto) 0.0 0.0-0.3 10^3/uL Basophils # (Auto) 0.0 0.0-0.1 10^3/uL Immature Granulocyte # (Auto) 0.3 H 0.0-0.1 10^3/uL Neutrophils % (Manual) 87 % Lymphocytes % (Manual) 6 % Monocytes % (Manual) 6 % Myelocytes % 1 % Polychromasia SLIGHT Anisocytosis SLIGHT Microcytosis SLIGHT Sodium Level 130 L 135-145 MMOL/L Potassium Level 6.7 #*H 3.6-5.0 MMOL/L Chloride Level 100 98-107 MMOL/L Carbon Dioxide Level 16 L 21-32 MMOL/L Anion Gap 14 5-14 MMOL/L Blood Urea Nitrogen 46 H 7-18 MG/DL Creatinine 1.70 H 0.60-1.30 MG/DL Estimat Glomerular Filtration Rate 45 BUN/Creatinine Ratio 27 Glucose Level 299 H 70-105 MG/DL Lactic Acid Level 4.58 *H 0.50-2.00 MMOL/L Calcium Level 8.8 8.5-10.1 MG/DL Corrected Calcium 9.5 8.5-10.1 MG/DL Total Bilirubin 0.4 0.1-1.0 MG/DL Aspartate Amino Transf (AST/SGOT) 319 H 5-34 U/L Alanine Aminotransferase (ALT/SGPT) 440 H 0-55 U/L Alkaline Phosphatase 112 40-136 U/L Troponin I 4.714 *H <0.028 NG/ML Total Protein 5.8 L 6.4-8.2 GM/DL Albumin 3.1 L 3.2-4.5 GM/DL Beta-Hydroxybutyrate (Chem panel) 0.20 0.00-0.27 MMOL/L Glucometer 243 H 70-110 MG/DL SARS-CoV-2 RNA (RT-PCR) Not Detected Not Detecte Urine Color YELLOW Urine Clarity CLEAR Urine pH 5.5 5-9 Urine Specific [place] 1.015 L 1.016-1.022 Urine Protein 1+ H NEGATIVE Urine Glucose (UA) NEGATIVE NEGATIVE Urine Ketones NEGATIVE NEGATIVE Urine Nitrite NEGATIVE NEGATIVE Urine Bilirubin NEGATIVE NEGATIVE Urine Urobilinogen 0.2 < = 1.0 MG/DL Urine Leukocyte Esterase NEGATIVE NEGATIVE Urine RBC (Auto) NEGATIVE NEGATIVE Urine RBC 0-2 /HPF Urine WBC 0-2 /HPF Urine Crystals NONE /LPF Urine Bacteria NEGATIVE /HPF Urine Casts PRESENT /LPF Urine Hyaline Casts RARE /LPF Urine Mucus NEGATIVE /LPF Urine Culture Indicated NO Test 10/04/22 12:48 Range/Units Physical Exam Physical Exam Vital Signs Vital Signs - First Documented 10/04/22 10/04/22 10:53 12:57 Temp 34.4 Pulse 77 Resp 14 B/P (MAP) 99/70 (80) Pulse Ox 100 O2 Delivery Room Air O2 Flow Rate 10.00 Capillary Refill : Less Than 3 Seconds Height, Weight, BMI Height: '" Weight: lbs. oz. kg; 24.00 BMI Method: General Appearance: WD/WN, Thin, Other (Not following commands) HEENT: PERRL/EOMI, Normal ENT Inspection Neck: Full Range of Motion, Normal Inspection, Non Tender, Supple Respiratory: Chest Non Tender, Lungs Clear, No Accessory Muscle Use, No Respiratory Distress, Other (Mild expiratory wheezing bilaterally) Cardiovascular: Regular Rate, Rhythm, No Edema, No Murmur, Normal Peripheral Pulses, Other (Hypotension, 90s systolic) Gastrointestinal: Normal Bowel Sounds, No Organomegaly, Non Tender, Soft Extremity: Normal Capillary Refill, Other (Dressing removed from the right foot. No evidence for infection. Sutures in place healing well.) Neurologic/Psychiatric: Alert, Oriented x3, No Motor/Sensory Deficits, Normal Mood/Affect, manager summer II-XII Norm as Tested Skin: Normal Color, Warm/Dry A/P-Cardiology Admission Diagnosis Syncope Cardiac arrhythmia Hyperkalemia Non-ST elevation myocardial infarction Critical limb ischemia Assessment/Plan Syncope, seizure-like activity Probably secondary to hypotension and severe bradycardia, underlying malignant arrhythmia cannot be excluded. Non-ST elevation myocardial infarction, known to have severe multivessel coronary artery disease, referred to Dr. Montilla for evaluation for bypass surgery. We will arrange for transfer to tertiary care center Severe anemia, receiving IV fluid and work-up to evaluate the anemia in progress Lactic acidosis, sepsis, probably secondary to the foot ulcer. Acute renal insufficiency, worsening renal function. Receiving IV fluid Severe hyperkalemia, resulting in bradycardia, questionable nonsustained ventricular tachycardia or ventricular fibrillation. Received calcium gluconate, glucose and insulin. Congestive heart failure, chronic compensated left ventricular systolic dysfunction with ejection fraction 25 to 30%, ischemic cardiomyopathy Underlying malignant arrhythmia cannot be excluded Gangrene with nonhealing ulcer on the right on the second toe and on the lateral aspect of the first toe. Started about 6 months ago with nonhealing ulcer. Underwent peripheral angiogram on 06/29/22 showing Right lower extremity runoff, heavily calcified arteries down to the trifurcation, Right common iliac and common femoral artery are patent with mild disease Right SFA, popliteal arteries are patent with mild to moderate disease nonobstructive disease Trifurcation is normal with no obstructive disease. Had amputations on his right foot. Still having open wound nonhealing wound. Left lower extremity: Calcified artery with 40% stenosis at the mid SFA. Nonobstructive disease down to the trifurcation. Left anterior tibial artery, posterior tibial artery and peroneal arteries are normal with slow flow due to small vessel disease Coronary artery disease, had abnormal stress test, underwent cardiac catheterization on 06/29/22 showing Severe multivessel coronary artery disease with occlusion of the right coronary artery that is dominant artery receiving collaterals from the left system. Dilated left ventricle with ejection fraction 25% by echocardiogram. Heavily calcified aorta with no dissection or aneurysm. Calcified arteries in the lower extremity with no obstructive disease Patient was seen by Dr. Montilla for evaluation for bypass surgery. Hypertension, was started on losartan in June 2022, probably worsening his hypokalemia Discussed the management plan, recommend transferring to a tertiary care center for immediate care. TRACEE OJEDA MD October 04, 2022 13:09
[2022-10-04 14:22] LABS: CALCIUM 9.5 MG/DL (8.5-10.1)
[2022-10-04 14:26] LABS: CREATININE SERUM 1.87 MG/DL (0.60-1.30)
[2022-10-04 14:28] LABS: POTASSIUM 6.7 MMOL/L (3.6-5.0)
[2022-10-04] MEDS ORDERED: ATROPINE INJECTION 1 MG/10 ML SYR (ABBOTT) IV ONE (14:30)
[2022-10-04] MEDS ORDERED: levETIRAcetam 1000 mg/NS 100ml 100 ML IV SCH (21:00)
== END 2022-10-04 15:53 | disposition short-term general hospital (02) ==
LOC: EDUNIT# 10:52 → ER 10:54
DX: R56.9 Unspecified convulsions (principal); D64.9 Anemia, unspecified; E87.5 Hyperkalemia; E87.1 Hypo-osmolality and hyponatremia; N17.9 Acute kidney failure, unspecified; R77.8 Other specified abnormalities of plasma proteins; E11.9 Type 2 diabetes mellitus without complications; D72.829 Elevated white blood cell count, unspecified; I10 Essential (primary) hypertension; Z79.84 Long term (current) use of oral hypoglycemic drugs; Z87.891 Personal history of nicotine dependence; Z20.822 Contact with and (suspected) exposure to COVID-19
CPT/HCPCS: 36430; 36556; 51702; 70450; 71045; 80048; 80053; 81000; 82010; 82274; 82947; 83605; 84484; 85007; 85027; 86850; 86900; 86901; 86920; 87040; 87636; 93005; 99291; P9016; 36415